=== PATIENT | female | born 1965 | race Caucasian/White ===

== ENCOUNTER 2016-07-08 17:36 | Observation (INO) | payer BC ==
[2016-07-08] MEDS ORDERED: ESTRACE2 MG PO (23:02)
[2016-07-08] MEDS ORDERED: LISINOPRIL10 MG PO (23:02)
[2016-07-08] MEDS ORDERED: ZOFRAN ODT4 MG/UDTAB PO (23:42)
[2016-07-10 05:21] LABS: BASOPHILS 0.3 % (0-2); EOSINOPHILS 7.9 % (0-7); HEMATOCRIT 37.7 % (36.0-48.0); HEMOGLOBIN 12.3 g/dL (12-16); IMMATURE GRANULOCYTES 0.3 % (0-5); LYMPHOCYTES 20.3 % (15-50); MCH 29.4 pg (26.0-34.0); MCHC 32.6 g/dL (31.0-37.0); MONOCYTES 7.1 % (2-11); NEUTROPHILS 64.1 % (40-80); PLATELET COUNT 191 10x3/uL (130-400); RBC 4.19 10x6/uL (4.00-5.40); RDW 13.3 % (11.5-14.5); WBC 13.9 10x3/uL (4.8-10.8)
[2016-07-10 05:36] LABS: CALC OSMOLALITY 284 mosm/kg (275-300); CALCIUM 8.5 mg/dL (8.5-10.1); CARBON DIOXIDE 30.6 mmol/L (21.0-32.0); CHLORIDE - SERUM 106 mmol/L (98-107); CREATININE - SERUM 0.8 mg/dL (0.6-1.3); GLUCOSE 92 mg/dL (74-106); POTASSIUM - SERUM 3.6 mmol/L (3.5-5.1); SODIUM 141 mmol/L (136-145); UREA NITROGEN 23 mg/dL (7-18); eGFR NON AFRICAN AMERICAN 80 mL/min (90-120)
[2016-07-10] MEDS ORDERED: CARAFATE1 G/10 ML PO (11:36)
[2016-07-10] MEDS ORDERED: Chloraseptic Spray [ TOPICAL (11:36)
[2016-07-10] MEDS ORDERED: OMEPRAZOLE20 M1 PO (11:39)
== END 2016-07-10 14:17 | disposition home or self-care (01) ==
LOC: D.ER 17:36 → D.M2 22:06
PROVIDERS: ADMIT Family Medicine
DX: T18.128A Food in esophagus causing other injury, initial encounter (principal); X58.XXXA Exposure to other specified factors, initial encounter; K20.9 Esophagitis, unspecified; K29.70 Gastritis, unspecified, without bleeding; K21.9 Gastro-esophageal reflux disease without esophagitis; I16.0 Hypertensive urgency

== ENCOUNTER 2017-01-22 10:00 | Outpatient (CLI) | payer BC ==
[2016-07-08 23:50] VITALS: BMI 22.3
[~2017-01-22 10:00] MED LIST: CARAFATE1 G/10 ML PO; Chloraseptic Spray [ TOPICAL; ESTRACE2 MG PO; LISINOPRIL10 MG PO; OMEPRAZOLE20 M1 PO; ZOFRAN ODT4 MG/UDTAB PO
== END 2017-01-22 23:59 | disposition home or self-care (01) ==
LOC: D.MAMMO 10:00
DX: Z12.31 Encounter for screening mammogram for malignant neoplasm of breast (principal)